=== PATIENT | male | born 1935 | race Caucasian/White ===

== ENCOUNTER 2016-10-04 17:25 | Emergency (ER) | payer MEDICARE, BC ==
[~2016-10-04 17:25] MED LIST: ASPIRIN81 MG; ATENOLOL; ATENOLOL50 MG; CLONIDINE HCL0.1 MG; COLACE-T100 MG PO; CORICIDIN HBP1 EACH PO; COZAAR50 MG; ENALAPRIL MALEA10 MG; ETODOLAC400 MG PO; FELODIPINE ER10 MG; FELODIPINE ER2.5 MG; FISH OIL1 CAP; HYDROCODONE/APA1 CAP PO; ISOSORBIDE DINI10 MG; ISOSORBIDE MONO30 M4 PO; LASIX40 M1 PO; LASIX40 MG; NAPROXEN500 MG PO; NEURONTIN300 M1 PO; NITROSTAT0.4 MG SL; NORCO 5-325 TA1 EACH PO; NORCO 5/325 TAB1 TAB PO; NORCO 5/3251 TAB PO; NORVASC5 MG; OMEPRAZOLE20 M3 PO; OMEPRAZOLE20 MG; PERCOCET 5/3251 TAB PO; PLAVIX75 MG; TENORMIN25 M1 PO; TERAZOSIN HCL2 M1 PO; TRAMADOL HCL50 MG; VASOTEC5 M1 PO; ZOCOR40 M1 PO; ZOCOR40 MG
[2016-10-04 19:00] LABS: BASO % 0.2 % (0-2); EOS % 1.4 % (0-7); EOSINOPHIL ABSOLUTE COUNT 0.1 tho/cmm (0.0-0.7); HCT-HEMATOCRIT 40.7 % (36.0-53.5); HGB-HEMOGLOBIN 13.3 gm/dl (13.5-17.0); IMMATURE GRANULOCYTES ABSOLUTE 0.02 tho/cmm (0-0.03); IMMATURE GRANULOCYTES PERCENT 0.3 % (0-0.3); LYMPH % 19.3 % (20-45); LYMPH ABSOLUTE COUNT 1.1 tho/cmm (0.8-4.5); MCH (MEAN CORPUSCULAR HGB) 31.4 pg (28.0-32.0); MCHC MEAN CORPUSCULAR HGB CONC 32.7 % (32.0-36.0); MEAN PLATELET VOLUME 12.7 cmc (9.4-12.4); MONO % 13.8 % (0-12); MONOCYTE ABSOLUTE COUNT 0.8 tho/cmm (0.0-1.2); NEUTROPHIL ABSOLUTE COUNT 3.8 tho/cmm (1.6-8.0); NEUTROPHIL-AUTOMATED 3.8 tho/cmm (1.6-8.0); RED BLOOD COUNT 4.24 mil/cmm (4.40-5.70); RED CELL DISTRIBUTION WIDTH 13.6 % (12.4-16.4); WHITE BLOOD COUNT 5.8 tho/cmm (4.0-10.0)
[2016-10-04 19:14] LABS: ANION GAP 12 mmol/L (0-20); BLOOD UREA NITROGEN 32 mg/dl (6-24); CALCIUM 8.9 mg/dl (8.5-10.5); CARBON DIOXIDE-VENOUS 29 mmol/L (22-32); CHLORIDE 104 mmol/l (96-110); CREATININE 1.78 mg/dl (0.60-1.30); GLUCOSE 99 mg/dL (70-110); MAGNESIUM 2.2 mg/dl (1.8-2.6); POTASSIUM 4.3 mmol/L (3.7-5.1); SODIUM 141 mmol/L (135-145); eGFR VALUE FOR BLACK 41 mL/Min
[2016-10-04 19:40] LABS: PLATELET COUNT 85 tho/cmm (150-450)
[2016-10-04 20:15] LABS: URINE BILIRUBIN NEGATIVE (NEG); URINE BLOOD MODERATE (NEG); URINE GLUCOSE (UA) NEGATIVE (NEG); URINE KETONE NEGATIVE (NEG); URINE LEUKOCYTE ESTERASE POSITIVE (NEG); URINE NITRITE NEGATIVE (NEG); URINE PROTEIN SMALL (NEG)
[2016-10-04 20:17] LABS: URINE APPEARANCE CLEAR; URINE COLOR YELLOW
[2016-10-04 20:22] LABS: URINE EPITHELIAL CELLS 0-1 /[HPF] (0-10); URINE MUCUS 2+; URINE RBC 0-2 /[HPF] (0-5); URINE WBC 0-2 /[HPF] (0-5)
== END 2016-10-04 21:10 ==
LOC: EDMED 17:25
PROVIDERS: Emergency Medicine
DX: E86.0 Dehydration (principal); I95.1 Orthostatic hypotension; I10 Essential (primary) hypertension; I25.10 Atherosclerotic heart disease of native coronary artery without angina pectoris; Z87.891 Personal history of nicotine dependence
CPT/HCPCS: J7030